=== PATIENT | male | born 1970 | race Hispanic/Latino ===

== ENCOUNTER 2024-10-28 19:13 | Emergency (ER) | payer SELFPAY ==
[2024-10-28 19:18] VITALS: BP 136/95
[2024-10-28 19:58] VITALS: BMI 25.5
[2024-10-28 20:01] VITALS: BP 146/81
[2024-10-28 20:03] VITALS: BP 146/81
--- NOTE | 2024-10-28 20:29 | ED.GENMED ---
History of Present Illness
General
Chief Complaint: Skin Problem
Source: patient
Exam Limitations: none
Time Seen by Provider: 10/28/24 20:02
Nursing documentation reviewed up to this point in time: agreed with
History of Present Illness
History of Present Illness:
Patient with history of insulin-dependent diabetes, also on metformin, who moved to [place] 6 months ago from [place] and has not taken medications since, presents to ED secondary to nonhealing wound over his left lower leg over the past 4
days. Patient who works at a restaurant, states that he touched his leg with an object. When he went home, he felt itching sensation and scratched it at nighttime. Over the next couple of days, patient treated the leg with hydrogen peroxide.
Since then, wound has increased in size along with redness. Denies fever or chills. Denies nausea or vomiting. Denies open drainage. In addition, over the past 6 months, he has noted burning sensation on the bottom of his feet. Patient is
unsure if his burning sensation may be secondary to his blood sugar.
Review of Systems
Review of Systems
Allergies reviewed?: Yes
All Other Systems: ROS reviewed and negative except as documented in HPI and ROS
Constitutional: Reports no symptoms; Denies fever
Respiratory: Reports no symptoms
Cardiac: Reports no symptoms
ABD/GI: Reports no symptoms
Skin: Reports other (leg wound/ulcer)
Neurological: Reports other (paresthesia)
Phy Exam
Physical Exam
Physical Exam:
Physical Exam
General: no apparent distress, not acutely ill. afebrile
Head: nc/at. eomi
Neck: supple. no meningeal signs.
Neuro: alert and oriented x 3. no focal neurological deficits
Skin: an approx 1cm diameter ulcer noted over anterior aspect of LLE with mild surrounding erythema. nontender to palpation.
Psychiatric: well kept. interactive and cooperative
Extremities: no edema. no calf tenderness.
Course
Orders/Labs/Results
Orders:
Orders
10/28/24 20:29
0.9% Sodium Chloride 500 ml [Nss] 500 ml IV BOLUS
10/28/24 20:35
CPK [Creatine Phosphokinase] Urgent
Complete Blood Count/With Diff Urgent
Comprehensive Metabolic Panel Urgent
Hemoglobin A1c [Glycohemoglobin (HgbA1c)] Urgent
Magnesium Urgent
TSH Urgent
Vitamin B12 Urgent
10/28/24 21:01
Insulin Aspart [NOVOLOG vial] 10 units SC NOW STA
METFORMIN HCl [Glucophage] 500 mg PO NOW STA
Abnormal Lab Results
10/28/24
20:35
Glucose 383 H mg/dl
(70-99)
Hemoglobin A1c 12.9 H %
(4.0-5.6)
Creatine Kinase 46 L U/L
(55-170)
10/28/24 20:35
10/28/24 20:35
Vital Signs
Initial and Last Documented VS:
Initial Vital Signs
Temp Pulse Resp BP Pulse Ox
98.1 F 111 16 136/95 97
10/28/24 19:18 10/28/24 19:18 10/28/24 19:18 10/28/24 19:18 10/28/24 19:18
Last Documented Vital Signs
Temp Pulse Resp BP Pulse Ox
98.2 F 105 18 139/78 97
10/28/24 20:03 10/28/24 20:03 10/28/24 20:03 10/28/24 21:00 10/28/24 21:40
MDM/Problems Addressed
MDM/Problems Addressed:
Left lower leg wound, likely development of ulcer, nonhealing, after exposure to scratching along with application of hydrogen peroxide. However, given patient's underlying diabetic history, concern for potential development of superimposed
infection. As such, patient will be started empirically on antibiotics, i.e. Bactrim. In addition, will check blood work and refer patient to [facility] for outpatient evaluation and treatment. In the meantime, patient will be
started back on metformin.
*Critical Care Note
Total Time (30-74mins, 75-104mins- exclusive of procedures): Not Applicable
ED Attending Note
-
Portions of this chart may have been created with voice recognition software.� Occasional wrong word or��sound alike� substitutions may have occurred due to the inherent limitations of voice recognition software.
Discharge Plan
Departure
Patient Disposition: Home (Routine Discharge)
Date of Disposition: 10/28/24
Time of Disposition: 21:02
Patient with high blood pressure during this ER visit?: Yes
Condition: Good
Discharge Problem:
Skin ulcer, Diabetes, Paresthesia
Instructions: Nerve damage caused by diabetes, Taking care of cuts, scrapes, and puncture wounds, Diabetes and diet, Type 1 diabetes - Discharge instructions
Prescriptions:
New
sulfamethoxazole-trimethoprim [Bactrim DS] 800-160 mg tablet
1 tab PO BID Qty: 14 0RF
metformin 500 mg tablet
500 mg PO BID Qty: 60 0RF
Referrals:
[facility] [Outside]
NONE,* [Family Provider] -
Activity Restrictions/Additional Instructions:
As discussed, please follow up with referred medical clinic for further evaluation and treatment. Please return to ED with worsening symptoms, i.e. fever/worsening wound despite antibiotics. Please keep your leg wound clean and dry. Do not apply any
more hydrogen peroxide.
Interventions
Interventions:
*Risk Screen - Suicide Last Done: 10/28/24 20:09
*General Assessment Last Done: 10/28/24 20:09
*Neglect/Abuse Screening Last Done: 10/28/24 20:09
*ED- Fall Risk Assessment Last Done: 10/28/24 20:09
*ED COVID-19 Vaccine History Last Done: 10/28/24 20:09
*Nursing Disposition Last Done: 10/28/24 21:40
ED-Skin Assessment Last Done: 10/28/24 20:43
Discharge Date and Time
Discharge Date/Time: 10/28/24 21:51
Print Language: GUATEMALAN
[2024-10-28] MEDS: NSS 500 IV (20:40)
[2024-10-28 20:42] LABS: % Basophils 0.8 % (0-2); % Eosinophils 2.4 % (0-6); % Immature Granulocytes 0.1 % (0-0.5); % Lymphocytes 28.5 % (20.5-51.1); % Monocytes 6.4 % (1.7-9.3); % Neutrophils 61.8 % (42.2-75.2); Absolute Basophils 0.1 10^3/uL (0-0.2); Absolute Eosinophils 0.2 10^3/uL (0-0.7); Absolute Lymphocytes 2.5 10^3/uL (1.2-3.4); Absolute Monocytes 0.6 10^3/uL (0.1-0.6); Absolute Neutrophils 5.3 10^3/uL (1.4-6.5); Hematocrit 42.2 % (39.0-52.0); Hemoglobin 14.5 g/dL (13.0-18.0); Mean Corp Hgb Conc. 34.4 g/dL (33.0-37.0); Mean Corpuscular Volume 81.6 fL (80.0-94.0); Mean Platelet Volume 9.3 fL (7.4-10.4); Nucleated Red Blood Cells % 0 % (-); Platelet Count 295 10^3/uL (130-400); Red Blood Cell Count 5.17 10^6/uL (4.70-6.10); Red Cell Dist. Width 12.9 % (11.5-14.5); White Blood Cell Count 8.6 10^3/uL (4.8-10.8)
[2024-10-28 20:58] LABS: ALT (SGPT) 16 U/L (0-50); AST (SGOT) 18 U/L (17-59); Alkaline Phosphatase 113 U/L (38-126); Blood Urea Nitrogen 17 mg/dl (9-20); Calcium 9.4 mg/dl (8.4-10.2); Carbon Dioxide 26 mmol/L (22-30); Chloride 102 mmol/L (98-107); Creatine Phosphokinase 46 U/L (55-170); Estimated Creatinine Clearance 98 ml/min; Glucose 383 mg/dl (70-99); Potassium 4.3 mmol/L (3.5-5.1); Sodium 137 mmol/L (135-145); Total Bilirubin 0.6 mg/dl (0.2-1.3); Total Protein 7.2 g/dl (6.3-8.2); eGFR > 60.00
[2024-10-28 21:00] VITALS: BP 139/78
[2024-10-28] MEDS: GLUCOPHAGE 500 MG PO (21:25)
[2024-10-28] MEDS: NOVOLOG vial 10 UNITS SC (21:25)
[2024-10-28 21:28] LABS: TSH 2.01 uIU/ml (0.47-4.68)
[2024-10-28 21:47] LABS: Vitamin B12 835 pg/ml (239-931)
[2024-10-29 11:08] LABS: Glycohemoglobin (HgbA1c) 12.9 % (4.0-5.6)
== END 2024-10-28 21:51 | disposition home or self-care (01) ==
LOC: EMR 19:13
PROVIDERS: EMERGENCY PHYSICIAN Emergency Medicine
DX: E11.622 Type 2 diabetes mellitus with other skin ulcer (principal); L97.821 Non-pressure chronic ulcer of other part of left lower leg limited to breakdown of skin; R20.2 Paresthesia of skin; X19.XXXA Contact with other heat and hot substances, initial encounter; Y93.89 Activity, other specified; Y92.89 Other specified places as the place of occurrence of the external cause; Y99.0 Civilian activity done for income or pay; R03.0 Elevated blood-pressure reading, without diagnosis of hypertension; Z79.4 Long term (current) use of insulin; Z79.84 Long term (current) use of oral hypoglycemic drugs
CPT/HCPCS: 99284; 96360; 96372; 80053; 82550; 82607; 83036; 83735; 84443; 85025

== ENCOUNTER 2024-10-30 12:16 | Emergency (ER) | payer SELFPAY ==
[2024-10-30 12:21] VITALS: BP 148/86
--- NOTE | 2024-10-30 12:45 | ED.SKININJ ---
HPI-Injury
General
Chief Complaint: Skin Problem
Source: patient
Exam Limitations: none
Time Seen by Provider: 10/30/24 12:37
History of Present Illness-Injury
Initial Injury comments:
54-year-old male diabetic on metformin presents for reevaluation. He was here 2 days ago for the same reason. He has a puncture to the anterior left jamil. There is mild surrounding erythema. He was prescribed an antibiotic last visit but he has
yet to fill it. He is here for recheck. He denies fevers. He also notes burning and numbness sensation into both legs. No other complaints at this time
Phy Exam
Physical Exam
Physical Exam:
General: Well-appearing male no acute respiratory distress
HEENT: Normocephalic atraumatic
Skin: Puncture wound anterior left jamil measuring half a centimeter with surrounding erythema. No underlying fluctuance. No induration. This is slightly tender no drainage.
Vascular: 2+ DP pulse left foot
Course
Orders/Labs/Results
Orders:
Orders
10/30/24 12:44
Sulfamethox./Trimethoprim Ds [Bactrim Ds 800 mg/160 mg] 1 tablet PO NOW STA
Vital Signs
Initial and Last Documented VS:
Initial Vital Signs
Temp Pulse Resp BP Pulse Ox
98.0 F 92 16 148/86 99
10/30/24 12:21 10/30/24 12:21 10/30/24 12:21 10/30/24 12:21 10/30/24 12:21
Last Documented Vital Signs
Temp Pulse Resp BP Pulse Ox
98.0 F 92 16 148/86 99
10/30/24 12:21 10/30/24 12:21 10/30/24 12:21 10/30/24 12:21 10/30/24 12:21
MDM/Problems Addressed
Differential Diagnosis Includes:
Erythema to left jamil. Exam most consistent with cellulitis no underlying abscess. No limb drinking. He is nontoxic without a fever
Patient has not yet filled his antibiotic prescription. I explained he needs to do so taking antibiotics as prescribed. No indication for IV antibiotics. Will give him a dose of Bactrim here and he will follow-up with the free clinic
*Critical Care Note
Total Time (30-74mins, 75-104mins- exclusive of procedures): Not Applicable
ED Attending Note
-
Portions of this chart may have been created with voice recognition software.� Occasional wrong word or��sound alike� substitutions may have occurred due to the inherent limitations of voice recognition software.
Discharge Plan
Departure
Patient Disposition: Home (Routine Discharge)
Date of Disposition: 10/30/24
Time of Disposition: 12:47
Patient with high blood pressure during this ER visit?: No
Discharge Problem:
Cellulitis
Instructions: Cellulitis (Skin Infection), Adult (DC)
Prescriptions:
No Action
sulfamethoxazole-trimethoprim [Bactrim DS] 800-160 mg tablet
1 tab PO BID Qty: 14 0RF
metformin 500 mg tablet
500 mg PO BID Qty: 60 0RF
Referrals:
UNKNOWN - PT DOES,NOT KNOW [Family Provider] -
Activity Restrictions/Additional Instructions:
Please take your antibiotic as directed. Follow-up with the clinic otherwise. Return if worse
Interventions
Interventions:
*Risk Screen - Suicide Last Done: 10/30/24 12:26
*General Assessment Last Done: 10/30/24 12:26
*Neglect/Abuse Screening Last Done: 10/30/24 12:26
*ED- Fall Risk Assessment Last Done: 10/30/24 12:26
*ED COVID-19 Vaccine History Last Done: 10/30/24 12:26
ED-Skin Assessment Last Done: 10/30/24 12:26
Discharge Date and Time
Print Language: KOSOVAN
[2024-10-30] MEDS: BACTRIM DS 800 MG/160 MG 1 TABLET PO (12:57)
== END 2024-10-30 13:03 | disposition home or self-care (01) ==
LOC: EMR 12:16
PROVIDERS: EMERGENCY PHYSICIAN Emergency Medicine
DX: L03.116 Cellulitis of left lower limb (principal); E11.9 Type 2 diabetes mellitus without complications; Z79.84 Long term (current) use of oral hypoglycemic drugs
CPT/HCPCS: 99283